=== PATIENT | female | born 1995 | race Caucasian/White ===

== ENCOUNTER 2018-09-26 20:55 | Inpatient (IN) | payer BC ==
[2018-09-26 21:43] VITALS: BMI 26.1
[2018-09-26] MEDS ORDERED: HYDROcodone/Acetaminophen 5/325 mg Tablet PO PRN ×2 (22:07)
[2018-09-26] MEDS ORDERED: Ondansetron PF 4 MG/2 ML Vial IVP PRN (22:07)
[2018-09-26] MEDS ORDERED: Misoprostol 200 MCG TAB PR PRN (22:07)
[2018-09-26] MEDS ORDERED: Ibuprofen 800 MG TAB PO PRN (22:07)
[2018-09-26] MEDS ORDERED: Lidocaine 1% (PF) 30 ML VIAL SC PRN (22:07)
[2018-09-26] MEDS ORDERED: NS / Oxytocin 40 units/1000ml 1,000 ML IV PRN (22:07)
[2018-09-26] MEDS ORDERED: Diphenoxylate HCl/Atropine Tablet PO PRN ×2 (22:07)
[2018-09-26] MEDS ORDERED: Methylergonovine 0.2 MG/ML VIAL IM PRN (22:07)
[2018-09-26] MEDS ORDERED: Lactated Ringer's 1,000 ML IV PRN (22:07)
[2018-09-26] MEDS ORDERED: Promethazine HCl 25 MG/ML VIAL IM PRN (22:07)
[2018-09-26] MEDS ORDERED: hydrALAZINE 20 MG/ML VIAL SLOW IVP PRN (22:07)
[2018-09-26] MEDS ORDERED: Carboprost 250 MCG/ML AMP IM PRN (22:07)
--- NOTE | 2018-09-26 22:13 | PDOC.LDHP ---
Labor and Delivery H&P Chief complaint: contractions HPI: Patient started having mild irregular contraction this morning around 11:45. they were every ten minutes, but she was able to stay home and rest through them. The contractions have progessively gotten stronger and closer together as the day has progressed. At 2039 she left for the hospital with contractions every 3-5 mins and strong. She denies LOF or VB. She reports good movement. Denies any other complaints Current gestational age (weeks): 40 (and 1 day) Due date: 09/25/18 Dating criteria: first trimester ultrasound Grav: 1 Para: 0 OB History Details: Not applicable. Current complications: none Abnormal US findings: No Past Medical History: Rh Negative Current medications: pre- vitamins, other (Rhogam on 07/11/18) Previous surgical history: other (wisdom teeth) Allergies/Adverse Reactions: Allergies Allergy/AdvReac Type Severity Reaction Status Date / Time No Known Allergies Allergy Unverified 09/26/18 22:17 Social history: none - Physical Exam Vital signs reviewed and normal: yes General: breathing through contractions Heart: RRR Lungs: nonlabored breathing Abdomen: gravid Extremeties: trace edema FHT: category 1 [place] contractions every: q3-4mins - Vaginal Exam cm dilated: 7 Effacement: 100% Station: -1 - OB Labs Blood type: O RH: negative Antibody Screen: negative HIV: negative RPR: negative HEPSAg: negative 1 hour GCT: negative GBS: negative Urine drug screen: negative Rubella: immune - Assessment L&D Assessment: term patient in labor - Plan Plan: admit to L&D -: low intervention protocol. anticipate Rhogam post delivery
[2018-09-26 23:12] LABS: Hemoglobin 13.5 g/dL (12.0-16.0); Mean Corpuscular HGB CONC 33.6 g/dL (32.0-36.0); Mean Corpuscular Hemoglobin 33.2 pg (27.0-31.0); Mean Corpuscular Volume 98.8 fL (78.0-98.0); Mean Platelet Volume 10.6 fL (7.4-10.4); Platelet Count 143 thou/uL (130-400); RBC Distribution Width 11.3 % (11.5-14.5); Red Blood Cell (RBC) Count 4.08 mill/uL (4.20-5.40); White Blood Cell (WBC) Count 21.6 thou/uL (4.8-10.8)
[2018-09-26] MEDS ORDERED: Oxytocin 10 UNITS/ML VIAL ONE (23:44)
[2018-09-26 23:46] LABS: HBSAg Index 0.25 S/CO (0-0.99); Hep B Surf Ag Non-Reactive S/CO (NonReactive); Syphilis Antibody Nonreactive (Nonreactive); Syphilis Antibody Index 0.04 S/CO (<1.00 Non-Reactive)
--- NOTE | 2018-09-27 02:12 | PDOC.OPDEL ---
OB Operative/Delivery Note Delivery Dr/Surgeon: Shanice Flood Pre-Delivery Diagnosis: active labor Procedure/Post Delivery Dx: spontaneous vaginal delivery Weeks gestation: 40 Anesthesia: none - Findings A Sex: female Weight: 7 lb 1 oz - 1 min: 8 - 5 min: 9 - Additional Findings/Plan Placenta delivered: spontaneous Repaired Obstetrical Laceration: 2nd degree Estimated blood loss: 450mL Compilations/Other Findings: Lose Nuchal cord reduced on perineium. Compound delivery with a hand 2nd degree laceration 200 mL of urine drained after delivery with straight cath due to boggy uterus. Post delivery plan: routine recovery
[2018-09-27] MEDS ORDERED: NS / Oxytocin 40 units/1000ml 1,000 ML IV SCH (05:23)
[2018-09-27] MEDS ORDERED: Bisacodyl 10 MG SUPP PR PRN (05:23)
[2018-09-27] MEDS ORDERED: HYDROcodone/Acetaminophen 5/325 mg Tablet PO PRN ×2 (05:23)
[2018-09-27] MEDS ORDERED: Milk Of Magnesia 30 ML UDCUP PO PRN (05:23)
[2018-09-27] MEDS ORDERED: Adacel (T-DAP) 0.5 ML SYRINGE IM ONE (05:23)
[2018-09-27] MEDS ORDERED: Benzocaine-Menthol 82.5 ML CAN TOP PRN (05:23)
[2018-09-27] MEDS ORDERED: Methylergonovine 0.2 MG/ML VIAL IM PRN (05:23)
[2018-09-27] MEDS ORDERED: Misoprostol 200 MCG TAB VAG PRN (05:23)
[2018-09-27] MEDS ORDERED: hydrALAZINE 20 MG/ML VIAL SLOW IVP PRN (05:23)
[2018-09-27] MEDS: Ibuprofen 800 MG TAB PO SCH ×3 (06:30→21:31)
[2018-09-27] MEDS: Docusate Calcium (SURFAK) 240 MG CAP PO SCH ×2 (08:20→21:31)
[2018-09-27] MEDS: Ferrous Sulfate 325 MG TAB PO SCH ×2 (08:20→17:17)
[2018-09-28] MEDS: Ibuprofen 800 MG TAB PO SCH ×2 (05:55→14:08)
[2018-09-28] MEDS: Ferrous Sulfate 325 MG TAB PO SCH (08:46)
[2018-09-28] MEDS: Docusate Calcium (SURFAK) 240 MG CAP PO SCH (09:11)
[2018-09-28 10:20] VITALS: BP 103/62; TEMP 98
--- NOTE | 2018-09-28 11:31 | PDOC.PP ---
Post Progress Note Post Day #: 1 Subjective: Overall well. Having some weakness when she is standing, but overallok. Perineum is sore. Passing gas, urinating, and had BM. is sore, she has scabs on her nipples. PO intake tolerated: yes Flatus: yes Ambulation: yes Vital Signs (12 hours) Temp Pulse Resp BP Pulse Ox 09/28/18 09:00 98.0 F 95 16 103/62 98 09/28/18 07:50 98 09/27/18 23:40 98.2 F 74 16 106/71 Weight Weight 162 lb - Physical Examination General: NAD Cardiovascular: no m/r/g, RRR Respiratory: non-labored breathing Abdominal: lochia (Minimal) Fundus firm & at: -2 Extremities: negative homans (B) Skin: no rash Perineum: intact Neurological: no gross focal deficits Psychiatric: A&Ox3 Result Diagrams: 09/26/18 22:58 Additional Labs: Post Labs Blood Type O NEGATIVE 09/26/18 23:19 Hep Bs Antigen Non-Reactive S/CO (NonReactive) 09/26/18 22:58 (1) (spontaneous vaginal delivery) Code(s): O80 - ENCOUNTER FOR FULL-TERM UNCOMPLICATED DELIVERY Status: Acute (2) 40 weeks gestation of Code(s): Z3A.40 - 40 WEEKS GESTATION OF Status: Acute (3) Second degree perineal laceration Code(s): O70.1 - SECOND DEGREE PERINEAL LACERATION DURING DELIVERY Status: Acute - Assessment/Plan A: s/p at 40weeks and 2 days complicated by 2nd degree repaired laceration. NML PPD #1 exam. P: Routine care Discharge home today Close follow up for as indicated. I worked with mother for 1 hr at bedside and infant is fed well with audible transfer visit 6 weeks.
== END 2018-09-28 17:50 | disposition home or self-care (01) | DRG 807 ==
LOC: L&D/OP 20:55 → L&D-LIB 22:27 → 3SW 09-27 09:18
PROVIDERS: ADMIT Student in an Organized Health Care Education/Training Program; ATTEND Student in an Organized Health Care Education/Training Program
PROC: 10E0XZZ Delivery of Products of Conception, External Approach (ICD-10-PCS; principal; 2018-09-27)
PROC: 0KQM0ZZ Repair Perineum Muscle, Open Approach (ICD-10-PCS; 2018-09-27)
DX: O69.81X0 Labor and delivery complicated by cord around neck, without compression, not applicable or unspecified (principal); Z37.0 Single live birth; O70.1 Second degree perineal laceration during delivery; Z3A.40 40 weeks gestation of pregnancy; Z67.91 Unspecified blood type, Rh negative; O26.893 Other specified pregnancy related conditions, third trimester
CPT/HCPCS: 36415; 51701; 85027; 85461; 86780; 86850; 86870; 86900; 86901; 87340; 90384; 96372; 99285; J2001; J2590